=== PATIENT | male | born 1965 | race Caucasian/White ===

== ENCOUNTER 2018-02-19 05:31 | Emergency (ER) | payer BC, OTHER ==
[~2018-02-19] VITALS: Ht 177.8 cm; Wt 86.7 kg
[~2018-02-19 05:31] MED LIST: ATOR10TA82 PO
[2018-02-19 05:35] VITALS: TEMP 36.6; Ht 177.8 cm; Wt 86.7 kg
--- NOTE | 2018-02-19 07:12 | EMERGENCY ROOM VISIT NOTE ---
History Report prepared by Collinibmason: Arslan Smallwood Under the Supervision of: Dr. Briseida Camejo D.O. First contact with patient: 05:48 Chief Complaint: EYE ASSESSMENT Stated Complaint: HAD LASER TREATMENT IN EYE, SEEING FLASHES History of Present Illness The patient is a 52 year old male who presents to the Emergency Room with complaints of constant blurry vision that began 3 days ago following a retinal detachment surgery to weld his detached retina. Patient states the surgery was performed by Dr. Colvin at [facility]. Patient states following the surgery he was having eye pain which the surgeon said was abnormal. He states he told his surgeon about his blurry vision but they stated that "nothing we could have done could have caused that". Patient describes the blurry vision as "dark areas" around his periphery. He adds he has been seeing intermittent "flashes of light" which have improved since coming to the ER. Patient states he was told he had no restrictions following the surgery. He states he wore his contacts to sleep last night. Source of History: patient Onset: 3 days ago Position: eye (bilateral) Timing: constant Modifying Factors (Relieving): other (None) Note: Positive light flashes. Review of Systems See HPI for pertinent positives & negatives. A total of 10 systems reviewed and were otherwise negative. Past Medical & Surgical Surgical Problems: (1) Status post laser cataract surgery of right eye Family History Cancer Heart disease Social History Smoking Status: Never Smoker Housing Status: lives with family Occupation Status: employed Current/Historical Medications No Active Prescriptions or Reported Meds Allergies Uncoded Allergies: PCN (Allergy, Unknown, RASH SWELLING, 06/02/05) Physical Exam Vital Signs Date Time Temp Pulse Resp B/P (MAP) Pulse Ox O2 Delivery O2 Flow Rate FiO2 02/19/18 07:13 69 16 122/83 98 02/19/18 07:08 69 16 122/83 98 Room Air 02/19/18 05:35 36.6 85 18 123/88 95 Room Air Right Eye Acuity: 20/30 Left Eye Acuity: 20/30 Physical Exam HEENT: Head - normocephalic and atraumatic. Pupils are equal, round, and reactive to light. Extraocular eye muscles are intact, and sclera are anicteric. There is moderate scleral injection. Nose - moist nasal mucosa without discharge. Mouth - moist buccal mucosa. Oropharynx is nonerythematous and there is no tonsillar exudate or edema noted. Right eye: Intraocular pressures were average of 17. Slit lamp exam was unremarkable other than slight clouding of cornea with fluorescein staining. Fundoscopic exam showed post-surgical changes. Medical Decision & Procedures Procedure Slit Lamp Examination Indication: Loss of peripheral vision The right eye was evaluated. slit lamp examination was performed in the standard fashion. Cornea appeared hazy. Anterior chamber quiet. Scleral injection is present. No discharge present. Fluorescein examination performed and revealed slight uptake over the entire cornea. No foreign bodies noted. The patient tolerated the procedure well without complication. ED Course 0532: Past medical records reviewed. The patient was evaluated in room A10. A complete history and physical exam was performed. Intraocular pressures were tested. The patient had a slit-lamp examination performed. A funduscopic exam was performed. 0622: Ophthalmology was paged for the patient. 0716: Upon reevaluation, the patient is resting comfortably. I discussed findings and results with him. He verbalized agreement of the treatment plan. He states he will call Dr. Colvin today and follow-up with him or Dr. Sheikh. He was discharged home. Medical Decision The patient is a 52 year old male who presents to the ED with constant blurry vision. Differential diagnosis includes post-operative complication, corneal ulcer, corneal abrasion, and retinal detachment. This is a 52-year-old male patient who presents to the emergency department with blurred vision and slight pain to the right eye since he underwent retinal welding 4 days ago. The patient awoke this morning with flashes of light to the eye and loss of peripheral vision. Intraocular pressures were normal and slit-lamp examination only revealed a slight haziness to the right cornea with slight fluorescein uptake. Funduscopic exam showed the postoperative changes. I discussed the case with Dr. Mac and he thought that the patient's diffuse corneal abrasion could have been secondary to the laser surgery form 4 days ago. He suggested that the patient leave his contacts out of his eyes. The patient will be followed up by Dr. Colvin or Dr. Sheikh. Medication Reconcilliation Current Medication List: was personally reviewed by me Blood Pressure Screening Patient's blood pressure: Normal blood pressure Blood pressure disposition: Did not require urgent referral Consults Time Called: [phone] Consulting Physician: Dr. Mac - Ophthamologist Returned Call: [phone] Discussed the patient's case. Dr. Mac recommends the patient discontinue wearing his contacts. He recommends the patient call Dr. Colvin today to make him aware of the situation and to potentially follow-up with him on Wednesday or with Dr. Sheikh. Impression Primary Impression: Right corneal abrasion Scribe Attestation The scribe's documentation has been prepared under my direction and personally reviewed by me in its entirety. I confirm that the note above accurately reflects all work, treatment, procedures, and medical decision making performed by me. Departure Information Dispostion Home / Self-Care Prescriptions No Active Prescriptions or Reported Meds Referrals Sammy Garner M.D. (PCP) Forms HOME CARE DOCUMENTATION FORM, IMPORTANT VISIT INFORMATION, WORK / SCHOOL INSTRUCTIONS Patient Instructions My [facility] [employer] Additional Instructions Do not wear your contacts til cleared by your doctor. Follow up today with Dr. Colvin for an appointment on Wednesday. If unsuccesful seeing Dr. Colvin, follow up with Dr. Sheikh Return to the ER if you develop worsening vision to the right eye Problem Qualifiers Primary Impression: Right corneal abrasion Encounter type: initial encounter Qualified Codes: S05.01XA - Injury of conjunctiva and corneal abrasion without foreign body, right eye, initial encounter
[2018-02-19 07:13] VITALS: BP 122/83; PULSE 69; O2SAT 98
== END 2018-02-19 07:14 | disposition home or self-care (01) ==
LOC: C.EDB 05:32 → C.EDA 07:14
DX: S05.01XA Injury of conjunctiva and corneal abrasion without foreign body, right eye, initial encounter (principal); X58.XXXA Exposure to other specified factors, initial encounter; Z88.0 Allergy status to penicillin